=== PATIENT | female | born 1995 | race Caucasian/White ===

== ENCOUNTER 2025-06-25 08:09 | Inpatient (IN) | payer BC, SELFPAY ==
[2025-06-25 08:15] VITALS: BP 112/66; BMI 35.0
[2025-06-25] MEDS: LR 1000 IV ×4 (08:15→20:50)
[2025-06-25 08:48] LABS: Hematocrit 31.7 % (37.0-47.0); Hemoglobin 10.5 g/dL (12.0-16.0); Mean Corp Hgb Conc. 33.1 g/dL (33.0-37.0); Mean Corpuscular Volume 83.0 fL (81.0-99.0); Nucleated Red Blood Cells % 0 %; Platelet Count 195 10^3/uL (130-400); Red Cell Dist. Width 13.2 % (11.5-14.5)
[2025-06-25] MEDS: PITOCIN 30 UNITS/NSS 500 ML IV (09:09)
[2025-06-25] MEDS: SUBLIMAZE 100 MCG EPIDURAL (19:16)
[2025-06-25] MEDS: FENTANYL/BUPIVACAINE 100 EPIDURAL (19:16)
[2025-06-26] MEDS: METHERGINE INJECTION 0.2 MG IM (01:50)
[2025-06-26] MEDS: TRANEXAMIC ACID 100 IV (01:55)
[2025-06-26] MEDS: MOTRIN 600 MG PO ×2 (12:47→19:48)
[2025-06-26] MEDS: PRENATAL PLUS 1 TABLET PO (12:47)
[2025-06-26] MEDS: COLACE 100 MG PO ×2 (12:47→19:48)
[2025-06-26] MEDS: TYLENOL 650 MG PO (19:48)
[2025-06-27 05:40] LABS: Hematocrit 27.8 % (37.0-47.0); Hemoglobin 8.9 g/dL (12.0-16.0)
[2025-06-27] MEDS: MOTRIN 600 MG PO (08:38)
[2025-06-27] MEDS: COLACE 100 MG PO (08:38)
[2025-06-27] MEDS: PRENATAL PLUS 1 TABLET PO (08:38)
[2025-06-30 13:35] LABS: Syphilis/T. pallidum Ab Reflex Negative (Negative)
== END 2025-06-27 12:56 | disposition home or self-care (01) | DRG 807 ==
LOC: LDRP 08:09
PROVIDERS: ADMITTING PHYSICIAN Student in an Organized Health Care Education/Training Program
PROC: 3E033VJ Introduction of Other Hormone into Peripheral Vein, Percutaneous Approach (ICD-10-PCS; 2025-06-25)
PROC: 10907ZC Drainage of Amniotic Fluid, Therapeutic from Products of Conception, Via Natural or Artificial Opening (ICD-10-PCS; 2025-06-25)
PROC: 0HQ9XZZ Repair Perineum Skin, External Approach (ICD-10-PCS; 2025-06-26)
PROC: 10E0XZZ Delivery of Products of Conception, External Approach (ICD-10-PCS; 2025-06-26)
DX: O69.81X0 Labor and delivery complicated by cord around neck, without compression, not applicable or unspecified (principal); Z37.0 Single live birth; Z3A.39 39 weeks gestation of pregnancy; O70.0 First degree perineal laceration during delivery; O76 Abnormality in fetal heart rate and rhythm complicating labor and delivery
CPT/HCPCS: 36415; 85014; 85018; 85025; 86780; 86850; 86900; 86901